=== PATIENT | male | born 1970 | race Caucasian/White ===

== ENCOUNTER 2018-03-07 11:19 | Day surgery (SDC) | payer OTHER ==
[2018-03-07] MEDS ORDERED: MIDAZOLAM 1 MG/ML 2 ML INJ (13:43)
[2018-03-07] MEDS ORDERED: PROPOFOL 20 ML (13:43)
[2018-03-07] MEDS ORDERED: LIDOCAINE 1% (MDV) 20 ML INJ (13:43)
[2018-03-07] MEDS ORDERED: FENTAnyl 50 MCG/ML VIAL (13:43)
== END 2018-03-07 14:41 | disposition home or self-care (01) ==
LOC: GIL 11:19
DX: K21.9 Gastro-esophageal reflux disease without esophagitis (principal); I10 Essential (primary) hypertension
CPT/HCPCS: 43239; 88305